=== PATIENT | male | born 1950 | race Caucasian/White ===

== ENCOUNTER 2022-02-05 06:56 | Day surgery (SDC) | payer MEDICARE ==
[2022-02-05] MEDS: Lactated Ringers 1,000 ML IV SCH (07:40)
[2022-02-05] MEDS ORDERED: fentaNYL 100 MCG/2 ML SDV ONE (08:32)
[2022-02-05] MEDS ORDERED: Propofol 200 MG/20 ML SDV ONE ×3 (08:32→10:19)
[2022-02-05 11:27] VITALS: BP 147/83; PULSE 83
== END 2022-02-05 16:00 | disposition home or self-care (01) ==
LOC: VM.SDS 06:56
PROVIDERS: ATTEND Student in an Organized Health Care Education/Training Program
DX: Z12.11 Encounter for screening for malignant neoplasm of colon (principal); D12.0 Benign neoplasm of cecum; D12.2 Benign neoplasm of ascending colon; D12.3 Benign neoplasm of transverse colon; G47.33 Obstructive sleep apnea (adult) (pediatric); N40.1 Benign prostatic hyperplasia with lower urinary tract symptoms; N13.8 Other obstructive and reflux uropathy; E66.9 Obesity, unspecified; H61.23 Impacted cerumen, bilateral; Z98.890 Other specified postprocedural states; Z79.899 Other long term (current) drug therapy; Z87.891 Personal history of nicotine dependence
CPT/HCPCS: 00812; 45380; 45385; 88305; J2704; J3010; J7120

== ENCOUNTER 2022-11-11 12:26 | Day surgery (SDC) | payer MEDICARE, OTHER ==
[~2022-11-11 12:26] MED LIST: Lactated Ringers 1,000 ML IV SCH; Sodium Chloride 0.9% 10 ML Syringe FLUSH PRN
[2022-11-11] MEDS ORDERED: Propofol 200 MG/20 ML SDV ONE ×2 (12:54→14:19)
[2022-11-11] MEDS ORDERED: fentaNYL 100 MCG/2 ML SDV ONE (12:54)
[2022-11-11 15:28] VITALS: BP 123/76; PULSE 68
== END 2022-11-11 16:06 | disposition home or self-care (01) ==
LOC: VM.SDS 12:26
PROVIDERS: ATTEND Family Medicine
DX: Z12.11 Encounter for screening for malignant neoplasm of colon (principal); D12.5 Benign neoplasm of sigmoid colon; D12.4 Benign neoplasm of descending colon; K62.1 Rectal polyp; K57.30 Diverticulosis of large intestine without perforation or abscess without bleeding; G47.33 Obstructive sleep apnea (adult) (pediatric); I10 Essential (primary) hypertension; E66.9 Obesity, unspecified; Z86.010 Personal history of colon polyps; Z80.0 Family history of malignant neoplasm of digestive organs; Z87.891 Personal history of nicotine dependence; Z79.899 Other long term (current) drug therapy
CPT/HCPCS: 00812; 45380; 45385; J2704; J3010; J7120; 88305

== ENCOUNTER 2025-04-03 22:28 | Emergency (ER) | payer MEDICARE, OTHER ==
[2025-04-03] MEDS: Take Home: traMADol 50 MG, 4 Tab Pack PO ONE (23:45)
[2025-04-04 02:22] VITALS: BP 189/80; PULSE 70
== END 2025-04-03 23:55 | disposition home or self-care (01) ==
LOC: VM.ED 22:28
DX: S20.212A Contusion of left front wall of thorax, initial encounter (principal); I10 Essential (primary) hypertension; E66.9 Obesity, unspecified; Z79.899 Other long term (current) drug therapy; Z79.1 Long term (current) use of non-steroidal anti-inflammatories (NSAID); Z68.35 Body mass index [BMI] 35.0-35.9, adult; X58.XXXA Exposure to other specified factors, initial encounter
CPT/HCPCS: 96372; 99282; 99283; A9270-GY; J1171

== ENCOUNTER 2025-04-05 10:56 | Emergency (ER) | payer MEDICARE, OTHER ==
[2025-04-05] MEDS ORDERED: Sodium Chloride 0.9% 10 ML Syringe FLUSH PRN (11:09)
[2025-04-05 11:27] LABS: BASOPHILS ABSOLUTE AUTO 0.0 x10^3/uL (0.0-0.2); BASOPHILS PERCENT AUTO 0.3 % (0.2-1.2); EOSINOPHILS ABSOLUTE AUTO 0.1 x10^3/uL (0.0-0.5); EOSINOPHILS PERCENT AUTO 1.0 % (0.0-4.0); IMMATURE GRAN ABSOLUTE AUTO 0.07 x10^3/uL (0.00-0.07); IMMATURE GRAN PERCENT AUTO 1.20 % (0.00-0.43); LYMPHOCYTES ABSOLUTE AUTO 0.6 x10^3/uL (1.0-4.8); LYMPHOCYTES PERCENT AUTO 9.5 % (25.0-50.0); MONOCYTES ABSOLUTE AUTO 1.0 x10^3/uL (0.0-0.8); MONOCYTES PERCENT AUTO 17.7 % (2.0-11.0); NEUTROPHILS ABSOLUTE AUTO 4.1 x10^3/uL (1.8-7.7); NEUTROPHILS PERCENT AUTO 70.3 % (50.0-80.0); PLATELET COUNT,PLT 168 x10^3/uL (130-400); RED BLOOD CELL COUNT 3.93 x10^6/uL (4.5-6.0); WHITE BLOOD CELL COUNT,WBC 5.9 x10^3/uL (4.0-10.0)
[2025-04-05 11:47] LABS: A/G RATIO 1.03; ALANINE AMINOTRANSFERASE,ALT 35.0 U/L (16-63); ASPARTATE AMNIOTRANSFERASE,AST 23.0 U/L (15-37); BILIRUBIN TOTAL 0.5 mg/dL (0.2-1.0); BLOOD UREA NITROGEN,BUN 11.0 mg/dL (7-18); CARBON DIOXIDE,CO2 24.0 mmol/L (21-32); CHLORIDE,CL 94.0 mmol/L (98-107); CREATININE 0.9 mg/dL (0.70-1.30); EST CRCL DRUG DOSING (CG) 81.38 mL/min; ESTIMATED GFR 90.0 mL/min (>=60); GLUCOSE RANDOM 103.0 mg/dL (70-99); POTASSIUM,K 4.0 mmol/L (3.5-5.1); PROTEIN TOTAL,TP 6.3 g/dL (6.4-8.2); SODIUM,NA 130.0 mmol/L (136-145)
[2025-04-05 11:59] LABS: APPEARANCE,URINE CLEAR (CLEAR); GLUCOSE,URINE NEGATIVE (NEGATIVE); OCCULT BLOOD,URINE TRACE-LYSED (NEGATIVE)
[2025-04-05] MEDS: Iopamidol 612 MG/ML 100 ML Bottle IVPUSH ONE (12:10)
[2025-04-05 12:12] LABS: SQUAMOUS EPITHELIAL CELLS,UR RARE /HPF (NOT SEEN)
[2025-04-05 13:27] VITALS: BP 132/70; PULSE 67
== END 2025-04-05 13:45 | disposition home or self-care (01) ==
LOC: VM.ED 10:56
DX: S30.1XXA Contusion of abdominal wall, initial encounter (principal); I10 Essential (primary) hypertension; K21.9 Gastro-esophageal reflux disease without esophagitis; Z79.899 Other long term (current) drug therapy; X58.XXXA Exposure to other specified factors, initial encounter; Y93.89 Activity, other specified
CPT/HCPCS: 36415; 74177; 80053; 81001; 83605; 83690; 85025; 86140; 99283; 99284; Q9967

== ENCOUNTER 2025-06-21 06:30 | Day surgery (SDC) | payer MEDICARE, OTHER ==
[~2025-06-21 06:30] MED LIST changes: -Sodium Chloride 0.9% 10 ML Syringe FLUSH PRN
[2025-06-21] MEDS: Lactated Ringers 1,000 ML IV SCH (06:44)
[2025-06-21] MEDS ORDERED: fentaNYL 100 MCG/2 ML SDV ONE (07:38)
[2025-06-21] MEDS ORDERED: Propofol 200 MG/20 ML SDV ONE ×3 (07:38→08:40)
[2025-06-21 09:19] VITALS: BP 166/94; PULSE 60
== END 2025-06-21 09:39 | disposition home or self-care (01) ==
LOC: VM.SDS 06:30
PROVIDERS: ATTEND Student in an Organized Health Care Education/Training Program
DX: Z12.11 Encounter for screening for malignant neoplasm of colon (principal); D12.0 Benign neoplasm of cecum; D12.2 Benign neoplasm of ascending colon; D12.3 Benign neoplasm of transverse colon; Q43.8 Other specified congenital malformations of intestine; I10 Essential (primary) hypertension; E66.01 Morbid (severe) obesity due to excess calories; Z80.0 Family history of malignant neoplasm of digestive organs; Z86.16 Personal history of COVID-19; Z68.36 Body mass index [BMI] 36.0-36.9, adult; Z87.891 Personal history of nicotine dependence; Z79.899 Other long term (current) drug therapy; Z86.0100 Personal history of colon polyps, unspecified
CPT/HCPCS: 00811; 88305; 99100; J2704; J3010; J7120